=== PATIENT | male | born 1990 | race Caucasian/White ===

== ENCOUNTER → 2017-04-09 | Outpatient (CLI) | payer BC ==
--- NOTE | 2017-04-09 12:18 | DIAGNOSTIC IMAGING REPORT ---
GI SERIES W/AIR ROUTINE CLINICAL HISTORY: 26-year-old male with dysphagia, chest pain, bloating, feeling of ingested material sticking in the sternal area for 3 to 4 months, normal endoscopy and colonoscopy. TECHNIQUE: A standard air contrast upper GI series was performed. Spot images of the esophagus and stomach were obtained in multiple obliquities both upright and prone. COMPARISON: None. FINDINGS: The patient swallowed barium without difficulty. The esophagus is structurally normal without evidence of intrinsic or extrinsic mass. The esophageal mucosal pattern is normal. No gastroesophageal reflux was elicited by having the patient perform the Valsalva maneuver. The gastroesophageal junction distends normally. A barium pill was also administered, which the patient was able to swallow without difficulty. This passed into the stomach without evidence of holdup. The stomach is normal in configuration and demonstrates normal distensibility. No mass or ulceration is identified. There was no evidence of gastritis. The duodenal bulb and sweep are unremarkable. Fluoroscopy dosage (mGy): Not available. Fluoroscopy time: 1.8 minutes. Number of fluoroscopic spot images: 19. IMPRESSION: Normal upper GI series. No evidence of holdup through the esophagus and gastroesophageal junction. Electronically signed by: Jasvir Johnson M.D. 04/09/2017 12:16 PM Dictated Date/Time: 04/09/2017 12:14 PM
== END | disposition home or self-care (01) ==
LOC: C.RAD 09:49
PROVIDERS: ATTEND Internal Medicine Gastroenterology
DX: R07.9 Chest pain, unspecified (principal); R14.0 Abdominal distension (gaseous)

== ENCOUNTER → 2017-04-15 | Outpatient (CLI) | payer BC ==
--- NOTE | 2017-04-15 12:46 | DIAGNOSTIC IMAGING REPORT ---
NUCLEAR GASTRIC EMPTYING STUDY CLINICAL HISTORY: Bloating. Weight loss. COMPARISON STUDY: Fluoroscopic upper GI series dated 04/09/2017. TECHNIQUE: Following the oral administration of 1.1 mCi of technetium 99m sulfur colloid in egg sandwich and 8 ounces of water, static abdominal images are obtained anteriorly and posteriorly at 0 minutes, 1 hour, 2 hour, and 4 hour time intervals. Gastric emptying was calculated utilizing the geometric mean method. FINDINGS: There is approximately 70% activity remaining at the 1 hour time interval, 28% remaining at the 2 hour time interval (normal is less than 60%), and 1% activity remaining at the 4 hour time interval (normal is less than 10%). IMPRESSION: Findings are consistent with normal gastric emptying for solids Electronically signed by: Domenic Hodgson M.D. 04/15/2017 12:45 PM Dictated Date/Time: 04/15/2017 12:44 PM
== END | disposition home or self-care (01) ==
LOC: C.NUCL 07:56
PROVIDERS: ATTEND Internal Medicine Gastroenterology
DX: R14.0 Abdominal distension (gaseous) (principal)

== ENCOUNTER → 2017-05-11 | Outpatient (CLI) | payer BC ==
[~2017-05-11] MED LIST: SINCALIDE INJ 1.4 MCG in SODIUM CHLORIDE 0.9% 100ML 100 ML IV SCH
--- NOTE | 2017-05-11 08:11 | DIAGNOSTIC IMAGING REPORT ---
ABDOMEN LIMITED (US) CLINICAL HISTORY: 26 years-old Male presenting with RT UPPER QUAD PAIN. TECHNIQUE: Real-time grayscale and limited color Doppler ultrasound imaging of the abdomen limited to the right upper quadrant was performed. COMPARISON: None. FINDINGS: Pancreas: Visualized portions of the pancreatic head and body normal. Liver: Normal echogenicity and echotexture. The liver measures 17 cm in maximal sagittal dimension. No sonographic evidence of hepatic mass. Main portal vein patent with normal directional flow. Biliary: No intrahepatic biliary ductal dilatation. Common bile duct measures up to 4 mm in diameter. Gallbladder: No evidence of gallstones, gallbladder wall thickening, gallbladder distention, or pericholecystic fluid or inflammatory change. Right kidney: Normal in appearance and size, measuring 10.7 cm. No hydronephrosis. Ascites: None. IMPRESSION: Normal right upper quadrant ultrasound. No cholelithiasis or biliary ductal dilatation. Electronically signed by: Jasvir Johnson M.D. 05/11/2017 8:10 AM Dictated Date/Time: 05/11/2017 8:08 AM
--- NOTE | 2017-05-11 10:07 | DIAGNOSTIC IMAGING REPORT ---
HEPATOBILIARY EF IMAGING CLINICAL HISTORY: 26 years-old Male with acute right upper quadrant pain. TECHNIQUE: Following the intravenous administration of 5.6 mCi of technetium-99m Choletec, sequential abdominal images were obtained. In order to evaluate the contractile response of the gallbladder, 1.4 mcg of Kinevac was administered by slow intravenous infusion over 30 min starting approximately 65 min after the administration of the radiopharmaceutical. Sequential imaging was continued for 60 min after the start of the Kinevac infusion. COMPARISON: Abdominal ultrasound 05/10/2017. FINDINGS: There is prompt, uniform accumulation of the tracer by the liver. There is normal filling of the intrahepatic ducts, common bile duct and gallbladder and normal excretion of the tracer into the duodenum. There is adequate contraction of the gallbladder. The calculated gallbladder ejection fraction is 83% (normal >40%). There is no significant enterogastric reflux. IMPRESSION: 1. Normal contractile response of the gallbladder to Kinevac infusion. 2. Normal biliary imaging study. The above report was generated using voice recognition software. It may contain grammatical, syntax or spelling errors. Electronically signed by: Andrew Rivera M.D. 05/11/2017 10:06 AM Dictated Date/Time: 05/11/2017 10:02 AM
== END | disposition home or self-care (01) ==
LOC: C.ULTR 07:12
PROVIDERS: ATTEND Internal Medicine Gastroenterology
DX: R10.11 Right upper quadrant pain (principal)

== ENCOUNTER → 2017-06-30 | Day surgery (SDC) | payer BC ==
[~2017-06-30] VITALS: Ht 188 cm; Wt 75.0 kg
[2017-06-30 08:29] VITALS: BP 104/70; PULSE 57; TEMP 36.5; O2SAT 100; Ht 188 cm; Wt 75.0 kg
[2017-06-30 11:43] VITALS: BP 97/61; PULSE 65; TEMP 36.6; O2SAT 100
== END | disposition home or self-care (01) ==
LOC: C.MTU 08:11
PROVIDERS: ATTEND Internal Medicine Gastroenterology
DX: R14.0 Abdominal distension (gaseous) (principal)